=== PATIENT | female | born 1990 | race American Indian/Alaskan Native ===

== ENCOUNTER 2017-11-02 11:42 | Emergency (ER) | payer SELFPAY ==
--- NOTE | 2017-11-02 12:44 | Emergency Department Report ---
Blank Doc - Documentation Documentation: Patient is a 27-year-old Female presented with some vaginal bleeding. Patient states her last normal. This started on October 19 and was for 4-5 days which is normal for her. He states several days later she started spotting is continued to spot until this time. Patient states she took 4 Percocet to test at home which shows a faint line shown that she was potentially her she went to another ER yesterday had a urine test was told that she was not . Patient is having some lower abdominal crampiness as is concerned about possible miscarriage. Brief focused physical exam patient has some mild discomfort in suprapubic region. While being ordered. The patient is and FOUND will be done. If the quant is less than 5 it does confirm that the patient is not at this time.
[2017-11-02] MEDS ORDERED: TYLENOL PO ONE (14:00)
--- NOTE | 2017-11-02 14:22 | Emergency Department Report ---
ED Abdominal Pain HPI - General Chief Complaint: Vaginal Bleeding Stated Complaint: BLEEDING AND TUBES TIED Time Seen by Provider: 11/02/17 12:39 Source: patient Mode of arrival: Ambulatory Limitations: No Limitations - History of Present Illness Initial Comments: Patient is a 27-year-old Female presented with some vaginal bleeding. Patient states her last normal. This started on October 19 and was for 4-5 days which is normal for her. He states several days later she started spotting is continued to spot until this time. Patient states she took 4 Percocet to test at home which shows a faint line shown that she was potentially her she went to another ER yesterday had a urine test was told that she was not . Patient is having some lower abdominal crampiness as is concerned about possible miscarriage. Brief focused physical exam patient has some mild discomfort in suprapubic region. While being ordered. The patient is and FOUND will be done. If the quant is less than 5 it does confirm that the patient is not at this time. Severity scale (0 -10): 5 - Related Data Previous Rx's Medication Instructions Recorded Last Taken Type Ibuprofen [Motrin] 600 mg PO Q8H PRN #20 tablet 11/02/17 Unknown Rx Allergies Allergy/AdvReac Type Severity Reaction Status Date / Time No Known Allergies Allergy Unverified 11/02/17 12:18 ED Review of Systems ROS: Stated complaint: BLEEDING AND TUBES TIED Other details as noted in HPI Comment: All other systems reviewed and negative ED Past Medical Hx - Past Medical History Previous Medical History?: Yes Hx Headaches / Migraines: Yes Hx Seizures: Yes Additional medical history: anemia - Surgical History Past Surgical History?: Yes Additional Surgical History: c section x 3 - Social History Smoking Status: Current Every Day Smoker Substance Use Type: None - Medications Home Medications: Home Medications Medication Instructions Recorded Confirmed Last Taken Type Ibuprofen [Motrin] 600 mg PO Q8H PRN #20 tablet 11/02/17 Unknown Rx ED Physical Exam - General Limitations: No Limitations General appearance: alert, in no apparent distress - Head Head exam: Present: atraumatic, normocephalic - Eye Eye exam: Present: normal appearance - ENT ENT exam: Present: mucous membranes moist - Neck Neck exam: Present: normal inspection - Respiratory Respiratory exam: Present: normal lung sounds bilaterally. Absent: respiratory distress, wheezes, rales, rhonchi - Cardiovascular Cardiovascular Exam: Present: regular rate, normal rhythm. Absent: systolic murmur, diastolic murmur, rubs, gallop - GI/Abdominal GI/Abdominal exam: Present: soft, normal bowel sounds. Absent: distended, tenderness, guarding, rebound - Extremities Exam Extremities exam: Present: normal inspection - Back Exam Back exam: Present: normal inspection - Neurological Exam Neurological exam: Present: alert, oriented X3 - Psychiatric Psychiatric exam: Present: normal affect, normal mood - Skin Skin exam: Present: warm, dry, intact, normal color. Absent: rash ED Course Vital Signs 11/02/17 12:04 Temperature 98.8 F Pulse Rate 67 Respiratory 18 Rate Blood Pressure 114/59 O2 Sat by Pulse 100 Oximetry ED Medical Decision Making - Lab Data Lab Results 11/02/17 Range/Units 13:11 HCG, Quant < 2 (0-4) mIU/mL - Medical Decision Making Patient's pertinent test is negative at this time. Is unable to tell the patient if she had had a miscarriage or not however patient is stable for quant is less than 2 and she'll be referred to gynecology. Critical care attestation.: If time is entered above; I have spent that time in minutes in the direct care of this critically ill patient, excluding procedure time. ED Disposition Clinical Impression: Abnormal vaginal bleeding Disposition: - TO HOME OR SELFCARE Is pt being admited?: No Does the pt Need Aspirin: No Condition: Stable Instructions: Dysfunctional Uterine Bleeding (ED) Referrals: SALVADOR CORONEL MD [Staff Physician] - 3-5 Days Time of Disposition: 14:21
[2017-11-02 14:29] VITALS: BP 118/62
== END 2017-11-02 14:27 | disposition home or self-care (01) ==
LOC: ED 11:42
DX: N93.9 Abnormal uterine and vaginal bleeding, unspecified (principal); R10.2 Pelvic and perineal pain; F17.200 Nicotine dependence, unspecified, uncomplicated; G43.909 Migraine, unspecified, not intractable, without status migrainosus; Z86.2 Personal history of diseases of the blood and blood-forming organs and certain disorders involving the immune mechanism
CPT/HCPCS: 36415; 84702; 99283